=== PATIENT | female | born 1935 | race Caucasian/White ===

== ENCOUNTER 2018-12-30 17:28 | Inpatient (IN) ==
[2018-12-30] MEDS ORDERED: Morphine Sulfate Oral CONC 10 MG/0.5 ML ORAL.SYG PO PRN (18:01)
[2018-12-30] MEDS ORDERED: Albuterol 2.5 MG/3 ML NEBULIZER IH PRN ×2 (18:01→19:34)
[2018-12-30] MEDS ORDERED: (Linaclotide [Linzess] 290 MCG) PO PRN (18:01)
[2018-12-30] MEDS: Mirtazapine 15 MG TABLET PO SCH (21:07)
[2018-12-30] MEDS: Gabapentin 300 MG CAPSULE PO SCH (21:07)
[2018-12-30] MEDS: *HR* OxyCODONE Immed Rel 5 MG TABLET PO SCH (21:07)
[2018-12-31 06:31] LABS: Basophils % 0.3 %; Eosinophils # 0.3 K/mcL (0.0-0.6); Eosinophils % 3.2 %; Hematocrit 24.2 % (35.3-44.9); Hemoglobin 7.4 g/dL (11.5-15.4); Immature Granulocytes % 0.5 % (0-4); Lymphocytes # 1.9 K/mcL (0.6-4.6); Lymphocytes % 20.4 %; Mean Corpuscular HGB Conc 30.6 g/dL (31.6-35.5); Mean Corpuscular Hemoglobin 31.5 pg (28.0-33.3); Mean Platelet Volume 9.8 fL (9.4-12.4); Monocytes # 0.6 K/mcL (0.0-1.3); Monocytes % 6.6 %; Neutrophils # 6.5 K/mcL (1.6-8.9); Nucleated Red Blood Cells 0.3 /100 WBC (0); Platelet Count 343 K/mcL (140-400); Red Blood Count 2.35 M/mcL (3.82-4.97); Red Cell Distribution Width 17.2 % (11.5-14.5); White Blood Count 9.4 K/mcL (4.3-11.1)
[2018-12-31 06:48] LABS: INR 1.1
[2018-12-31 06:51] LABS: Activated Partial Thrombo Time 26.8 Seconds (26.0-36.0)
[2018-12-31 07:42] LABS: Calcium 8.3 mg/dL (8.6-10.3); Potassium 4.4 mEq/L (3.5-5.1)
[2018-12-31] MEDS: Multivit/Ca/Min/Fe/FA 1 TAB TABLET PO SCH (08:13)
[2018-12-31] MEDS: *HR* OxyCODONE Immed Rel 5 MG TABLET PO SCH ×4 (08:13→20:30)
[2018-12-31] MEDS: Aspirin Enteric Coated 81 MG Tablet PO SCH (08:13)
[2018-12-31] MEDS: amLODIPine 5 MG TABLET PO SCH (08:14)
--- NOTE | 2018-12-31 12:07 | Internal Med History&Physical ---
Date of Encounter: 12/31/18 Time of Encounter: 11:35 Assessment and Plan (1) Unilateral AKA Current visit: Yes Status: Acute PT and OT evaluation has been ordered. Follow up with surgeon as directed. (2) Hypertension Current visit: No Status: Chronic Continue amlodipine, Coreg, and Cozaar. Qualifiers: Hypertension type: essential hypertension Qualified Code(s): I10 - Essential (primary) hypertension (3) COPD (chronic obstructive pulmonary disease) Current visit: No Status: Chronic Continue Proventil nebs as needed. Qualifiers: COPD type: COPD with acute exacerbation Qualified Code(s): J44.1 - Chronic obstructive pulmonary disease with (acute) exacerbation (4) Chronic kidney disease Current visit: No Status: Chronic Creatinine minimally changed since July 2015. Monitor renal indices. Qualifiers: Chronic kidney disease stage: stage 3 (moderate) Qualified Code(s): N18.9 - Chronic kidney disease, unspecified (5) Coronary artery disease Current visit: No Status: Chronic Status post stent placement. Continue aspirin, Coreg, and amlodipine. Qualifiers: Coronary Disease-Associated Artery/Lesion type: [place] artery [place] vs. transplanted heart: [place] heart Associated angina: without angina Qualified Code(s): I25.10 - Atherosclerotic heart disease of [place] coronary artery without angina pectoris (6) DVT prophylaxis Current visit: No Status: Acute Lovenox will be ordered. (7) Congestive heart failure Current visit: No Status: Acute Continue aspirin, Coreg, and Cozaar. Qualifiers: Heart failure type: systolic Heart failure chronicity: acute on chronic Qualified Code(s): I50.23 - Acute on chronic systolic (congestive) heart failure (8) Dementia Current visit: No Status: Chronic MMSE will be ordered. Qualifiers: Dementia type: unspecified type Dementia behavioral disturbance: without behavioral disturbance Qualified Code(s): F03.90 - Unspecified dementia without behavioral disturbance (9) Anemia Current visit: No Status: Acute Recent anemia testing showed iron 60, transferrin saturation 18%, transferrin 239, ferritin 44, B12 1321, and folate> 22.3. Monitor CBC. Qualifiers: Anemia type: unspecified type Qualified Code(s): D64.9 - Anemia, unspecified Internal Medicine - H&P: HPI Chief complaint: Left AKA Admitted From: Hospital to Hospital Transfer Plans for Post Hospital Care: Home History of present illness: Ms. Hester is a 83 year old female who was transferred to [facility] swing bed after [facility] hospitalization December 19 for occluded left femoropopliteal bypass graft. She had left AKA 12/21/2018. Her postop course was complicated by GI bleed with panendoscopy not revealing bleeding source. Eliquis was discontinued. As pirin was continued. She was discharged to [facility] swing bed for ongoing therapy needs. [place] skeletal history is significant for previous leg fracture treated nonoperatively remotely. She denies significant arthritis gout or other bone joint or muscle disorders. Past Med Surg Social Fam HX - Past Medical History Medical history: CHF, COPD, coronary artery disease, GERD, hyperlipidemia, hypertension, peripheral artery disease Additional medical history: Unknown heart problem. fall with broken ribs janfeb 2018? DNR-CC and on hospice care Psychiatric history: no psych history - Past Surgical History Surgical History: hysterectomy, knee replacement, orthopedic, other Additional surgical history: right shoulder, right hand, knee surgery - Social History Smoking Status: Former smoker Smokeless Tobacco Status: No Alcohol use: none Drug use: none - Family History Father Hx Family Cardiac Disorders: Yes Brother Hx Family Cancer: Yes (kidney) Mother Family Member Ethnicity: Non- Living Status: Internal Medicine - H&P: Meds Aspirin Enteric Coated [Aspirin EC] 81 mg PO DAILY 06/05/17 [History] Multivit-Min/FA/Lycopen/Lutein [Centrum Silver Tablet] 1 tab PO DAILY 06/05/17 [History] [place]-3/Dha/Epa/Fish Oil [[place]-3 Fish Oil 1,000 mg Sfgl] 1,000 mg PO DAILY 06/05/17 [History] Albuterol Sulfate [Ventolin Hfa] 2 puff IH Q6H PRN 03/01/18 [History] Carvedilol [Coreg] 25 mg PO BIDWM tablet 04/21/18 [Rx] Gabapentin [Neurontin] 300 mg PO HS 12/05/18 [History] Linaclotide [Linzess] 290 mcg PO DAILY PRN 12/05/18 [History] Mirtazapine [Remeron] 30 mg PO HS 12/05/18 [History] amLODIPine [Norvasc] 2.5 mg PO DAILY 12/05/18 [History] Albuterol Neb [Proventil Neb] 2.5 mg IH Q6H PRN 12/07/18 [History] Losartan Potassium 25 mg PO DAILY 12/07/18 [History] Morphine Oral CONC [Roxanol] 5 mg PO QID PRN 12/07/18 [History] Oxycodone HCl [Roxybond] 5 mg PO QID 12/19/18 [History] Ferrous Sulfate 325 mg PO BIDWM 30 Days #60 tablet 12/23/18 [Rx] Omeprazole [PriLOSEC] 40 mg PO BIDAC capsule. 12/30/18 [Rx] Allergy/AdvReac Type Severity Reaction Status Date / Time latex Allergy Hives Verified 04/12/18 16:44 lisinopril AdvReac Abdominal Verified 04/12/18 16:44 Pain All Systems PM: A 10-system review of systems was performed and is negative for pertinent findings except as documented above in the HPI. Review of systems: Gen.: Her weight had been stable approximately 60 kg prior to AKA. Cardiovascular: She has history of hypertension and ischemic cardiomyopathy with LVEF 30% on echocardiogram April 2018. She has had BiV ICD placed. The interventricular septum and posterior wall thickness measurements were 1.21 and 1.38 cm respectively. Heart catheter 08/06/2017 showed 30% stenosis in LMCA, 20% stenosis in proximal LAD, 15% stenosis in mid LAD, patent stent in first diagonal, 20% stenosis in proximal circumflex, 30% stenosis in first marginal, and 100% stenosis in proximal RCA which was considered [employer]. The RPDA filled via [id number] collaterals. No additional intervention was done. She had extensive left leg DVT prior to amputation. She has ASPVD. Respiratory: She smoked since age 14 up to one and a half packs per day. She has a diagnosis COPD and used home oxygen prior to hospitalization. CT of chest abdomen pelvis 12/19/2018 showed no pathology suggestive of malignancy. GI: She denies disorders of her liver gallbladder or exocrine pancreas : She was unaware she had chronic kidney disease stage III. She denies other kidney or bladder disorders. Neurologic: She denies large distribution strokes or seizures. Endocrine: She denies diabetes thyroid disease or hyperlipidemia Hematology/oncology: She was unaware she had anemia. She denies internal malignancies. Psychiatric: She denies anxiety depression or other mental health issues. [place] skeletal: She had AKA last week as per history of present illness. She denies significant arthritis gout or other bone joint or muscle disorders. - Constitutional Vitals: Temp Pulse Resp BP Pulse Ox 98.2 F 70 16 159/72 95 12/31/18 06:59 12/31/18 06:59 12/31/18 06:59 12/31/18 06:59 12/31/18 06:59 Exam: Neuro: She is a well-developed well-nourished female resting comfortably in a chair at bedside who appears in no acute distress HEENT: Head is atraumatic and normocephalic. Eyes: EOMI. There is no scleral icterus. Mouth: Mucosa is moist. Neck: Supple and nontender. There is no thyromegaly or adenopathy noted. Heart: Regular without murmurs gallops or ectopics Lungs: No wheezes or crackles are heard. Back: She has dorsal kyphosis. There is no presacral edema. Abdomen: Soft and nontender. Exam is limited because she is in the seated position. Extremities: The left leg AKA incision shows minimal erythema around staple insertion sites. No incisional drainage is noted. The right leg shows no pitting edema. She has mild DJD changes of her hands. Neurologic: Mental status: She is talkative and a fair to good historian. She does not remember some details of her history. Cranial nerves: Smile is symmetric. Forehead wrinkles bilaterally. Tongue protrudes midline. EOMI. Motor: There is no pronator drift. Cerebellar: Finger to nose is intact bilaterally. Skin: Warm and dry Internal Med - H&P Results - Labs CBC & Chem 7: 12/31/18 06:12 12/31/18 06:12 Labs: Short CBC 12/31/18 Range/Units 06:12 WBC 9.4 (4.3-11.1) K/mcL Hgb 7.4 L (11.5-15.4) g/dL Hct 24.2 L (35.3-44.9) % Plt Count 343 (140-400) K/mcL Neutrophils # 6.5 (1.6-8.9) K/mcL BMP 12/31/18 06:12 Sodium 140 Potassium 4.4 Chloride 110 H Carbon Dioxide 25 BUN 21 Creatinine 1.32 H Glucose 96 Calcium 8.3 L
[2018-12-31] MEDS: Mirtazapine 15 MG TABLET PO SCH (20:29)
[2018-12-31] MEDS: Gabapentin 300 MG CAPSULE PO SCH (20:29)
[2019-01-01] MEDS ORDERED: *HR* Enoxaparin 40 MG/0.4 ML SYRINGE SQ SCH (06:00)
[2019-01-01] MEDS: amLODIPine 5 MG TABLET PO SCH (08:56)
[2019-01-01] MEDS: *HR* OxyCODONE Immed Rel 5 MG TABLET PO SCH ×4 (08:57→20:43)
[2019-01-01] MEDS: Aspirin Enteric Coated 81 MG Tablet PO SCH (08:57)
[2019-01-01] MEDS: Multivit/Ca/Min/Fe/FA 1 TAB TABLET PO SCH (08:57)
--- NOTE | 2019-01-01 16:08 | Internal Med Progress Note ---
Date of Encounter: 01/01/19 Time of Encounter: 16:00 - Assessment and plan (1) Unilateral AKA Current Visit: Yes Status: Acute Assessment and plan: January 01. Continue PT/OT intervention. Follow up with surgeon as directed. (2) Hypertension Current Visit: No Status: Chronic Assessment and plan: January 01. Continue amlodipine, Coreg, and Cozaar Qualifiers: Hypertension type: essential hypertension Qualified Code(s): I10 - Essential (primary) hypertension (3) COPD (chronic obstructive pulmonary disease) Current Visit: No Status: Chronic Assessment and plan: January 01. Continue Proventil nebs as needed. Qualifiers: COPD type: COPD with acute exacerbation Qualified Code(s): J44.1 - Chronic obstructive pulmonary disease with (acute) exacerbation (4) Chronic kidney disease Current Visit: No Status: Chronic Assessment and plan: January 01. Creatinine minimally changed since July 2015. Monitor renal indices. Qualifiers: Chronic kidney disease stage: stage 3 (moderate) Qualified Code(s): N18.9 - Chronic kidney disease, unspecified (5) Coronary artery disease Current Visit: No Status: Chronic Assessment and plan: January 01. Status post stent placement. Continue aspirin, Coreg, and amlodipine. Qualifiers: Coronary Disease-Associated Artery/Lesion type: [place] artery [place] vs. transplanted heart: [place] heart Associated angina: without angina Qualified Code(s): I25.10 - Atherosclerotic heart disease of [place] coronary artery without angina pectoris (6) DVT prophylaxis Current Visit: No Status: Acute Assessment and plan: January 01. Continue Lovenox. (7) Congestive heart failure Current Visit: No Status: Acute Assessment and plan: January 01. Continue aspirin, Coreg, and Cozaar. Qualifiers: Heart failure type: systolic Heart failure chronicity: acute on chronic Qualified Code(s): I50.23 - Acute on chronic systolic (congestive) heart failure (8) Dementia Current Visit: No Status: Chronic Assessment and plan: January 01. Possible. MMSE has been ordered. Qualifiers: Dementia type: unspecified type Dementia behavioral disturbance: without behavioral disturbance Qualified Code(s): F03.90 - Unspecified dementia without behavioral disturbance (9) Anemia Current Visit: No Status: Acute Assessment and plan: January 01. Recent anemia testing showed iron 60, transferrin saturation 18%, transferrin 239, ferritin 44, B12 1321, and folate> 22.3. Monitor CBC. Qualifiers: Anemia type: unspecified type Qualified Code(s): D64.9 - Anemia, unspecified - Subjective Interval history: January 01. She has no new complaints except she is "bored" and wants to go outside. - Constitutional Vitals: Temp Pulse Resp BP Pulse Ox 98.9 F 71 16 128/53 96 01/01/19 06:44 01/01/19 06:44 01/01/19 06:44 01/01/19 06:44 01/01/19 06:44 Exam: She is resting comfortably in bed and appears in no acute distress. Her affect is bright and cheerful. I reviewed her medications and lab results. Internal Medicine: Result - Labs CBC & Chem 7: 12/31/18 06:12 12/31/18 06:12 - ABG Interpretation ABG results: PT/INR, D-dimer PT 12.0 Seconds (9.4-12.1) 12/31/18 06:12 Consult Discharge Plan - Plan Referrals: NONE,PCP [Primary Care Provider] - 1 week
[2019-01-01] MEDS: Mirtazapine 15 MG TABLET PO SCH (20:50)
[2019-01-01] MEDS: Gabapentin 300 MG CAPSULE PO SCH (20:50)
[2019-01-02] MEDS: *HR* Enoxaparin 30 MG/0.3 ML SYRINGE SQ SCH (05:33)
[2019-01-02] MEDS: amLODIPine 5 MG TABLET PO SCH (09:00)
[2019-01-02] MEDS: Multivit/Ca/Min/Fe/FA 1 TAB TABLET PO SCH (09:00)
[2019-01-02] MEDS: Aspirin Enteric Coated 81 MG Tablet PO SCH (09:01)
[2019-01-02] MEDS: *HR* OxyCODONE Immed Rel 5 MG TABLET PO SCH ×3 (09:01→18:20)
[2019-01-02] MEDS ORDERED: Acetaminophen 325 MG TABLET PO PRN (11:05)
--- NOTE | 2019-01-02 11:12 | Internal Med Progress Note ---
Date of Encounter: 01/02/19 Time of Encounter: 11:00 - Assessment and plan (1) Unilateral AKA Current Visit: Yes Status: Acute Assessment and plan: January 01. Continue PT/OT intervention. Follow up with surgeon as directed. (2) Hypertension Current Visit: No Status: Chronic Assessment and plan: January 01. Continue amlodipine, Coreg, and Cozaar Qualifiers: Hypertension type: essential hypertension Qualified Code(s): I10 - Essential (primary) hypertension (3) COPD (chronic obstructive pulmonary disease) Current Visit: No Status: Chronic Assessment and plan: January 01. Continue Proventil nebs as needed. Qualifiers: COPD type: COPD with acute exacerbation Qualified Code(s): J44.1 - Chronic obstructive pulmonary disease with (acute) exacerbation (4) Chronic kidney disease Current Visit: No Status: Chronic Assessment and plan: January 01. Creatinine minimally changed since July 2015. Monitor renal indices. Qualifiers: Chronic kidney disease stage: stage 3 (moderate) Qualified Code(s): N18.9 - Chronic kidney disease, unspecified (5) Coronary artery disease Current Visit: No Status: Chronic Assessment and plan: January 01. Status post stent placement. Continue aspirin, Coreg, and amlodipine. Qualifiers: Coronary Disease-Associated Artery/Lesion type: [place] artery [place] vs. transplanted heart: [place] heart Associated angina: without angina Qualified Code(s): I25.10 - Atherosclerotic heart disease of [place] coronary artery without angina pectoris (6) DVT prophylaxis Current Visit: No Status: Acute Assessment and plan: January 01. Continue Lovenox. (7) Congestive heart failure Current Visit: No Status: Acute Assessment and plan: January 01. Continue aspirin, Coreg, and Cozaar. January 02. Continue present Rx. Check BNP peptide. Qualifiers: Heart failure type: systolic Heart failure chronicity: acute on chronic Qualified Code(s): I50.23 - Acute on chronic systolic (congestive) heart failure (8) Dementia Current Visit: No Status: Chronic Assessment and plan: January 01. Possible. MMSE has been ordered. January 02. MMSE score . TSH and B12 level WNL. Qualifiers: Dementia type: unspecified type Dementia behavioral disturbance: without behavioral disturbance Qualified Code(s): F03.90 - Unspecified dementia without behavioral disturbance (9) Anemia Current Visit: No Status: Acute Assessment and plan: January 01. Recent anemia testing showed iron 60, transferrin saturation 18%, transferrin 239, ferritin 44, B12 1321, and folate> 22.3. Monitor CBC. January 02. Check CBC today. Qualifiers: Anemia type: unspecified type Qualified Code(s): D64.9 - Anemia, unspecified (10) Fever Current Visit: Yes Status: Acute Assessment and plan: January 02. Blood cultures, chest x-ray, labs, and UA with C/S will be ordered. Qualifiers: Fever type: unspecified Qualified Code(s): R50.9 - Fever, unspecified (11) Tobacco abuse Current Visit: No Status: Chronic Assessment and plan: January 02. Start NicoDerm patch. - Subjective Interval history: January 01. She has no new complaints except she is "bored" and wants to go outside. January 02. She has no new complaints. She denies pain or dyspnea. - Constitutional Vitals: Temp Pulse Resp BP Pulse Ox 102.1 F H 71 14 149/59 92 01/02/19 07:12 01/02/19 07:12 01/02/19 07:12 01/02/19 07:12 01/02/19 07:12 Exam: She is resting comfortably in bed and appears in no acute distress. Heart is regular with rate approximately 72/m. Lungs are clear anteriorly. Left leg stump shows no drainage or erythema. I reviewed her medications and lab results. I note fever 102.1 this morning. Internal Medicine: Result - Labs CBC & Chem 7: 12/31/18 06:12 12/31/18 06:12 - ABG Interpretation ABG results: PT/INR, D-dimer PT 12.0 Seconds (9.4-12.1) 12/31/18 06:12 Consult Discharge Plan - Plan Referrals: NONE,PCP [Primary Care Provider] - 1 week
[2019-01-02 11:32] LABS: Basophils # 0.1 K/mcL (0.0-0.2); Basophils % 0.3 %; Eosinophils # 0.2 K/mcL (0.0-0.6); Eosinophils % 0.8 %; Hematocrit 25.8 % (35.3-44.9); Immature Granulocytes % 0.5 % (0-4); Lymphocytes # 1.3 K/mcL (0.6-4.6); Lymphocytes % 6.2 %; Mean Corpuscular Hemoglobin 32.1 pg (28.0-33.3); Mean Corpuscular Volume 103.6 fL (83.0-100.0); Monocytes # 0.9 K/mcL (0.0-1.3); Monocytes % 4.4 %; Neutrophils # 18.7 K/mcL (1.6-8.9); Platelet Count 319 K/mcL (140-400); Red Blood Count 2.49 M/mcL (3.82-4.97); Red Cell Distribution Width 17.2 % (11.5-14.5); Segmented Neutrophils % 87.8 %; White Blood Count 21.3 K/mcL (4.3-11.1)
[2019-01-02 11:51] LABS: Albumin 3.1 g/dL (3.5-5.7); Albumin/Globulin Ratio 1.1 (1.1-2.2); Bilirubin,Total 0.3 mg/dL (0.3-1.0); Calcium 8.4 mg/dL (8.6-10.3); Globulin 2.9 g/dL (2.4-3.5); Potassium 4.5 mEq/L (3.5-5.1)
[2019-01-02] MEDS: Nicotine 14 MG PATCH.TD24 TD SCH (12:28)
[2019-01-02] MEDS ORDERED: Aminoglycoside Consult 1 EACH MC ONE (16:00)
[2019-01-02 17:16] LABS: Bilirubin,Urine Negative (Negative); Blood,Urine Moderate (Negative); Clarity,Urine Slightly Cloudy (Clear); Color,Urine Yellow (Yellow); Glucose,Urine (UA) Normal (Normal); Ketones,Urine Negative (Negative); Leukocyte Esterase,Urine Small (Negative); Nitrite,Urine Positive (Negative); Protein,Urine 100 mg/dL (Neg-Trace); Urobilinogen,Urine Normal (Normal)
[2019-01-02 17:22] LABS: Bacteria,Urine Many per hpf (None-Few); RBC,Urine TNTC per hpf (0-3); Squamous Epithelial Cell,Urine Few per lpf (None-Few); WBC,Urine TNTC per hpf (0-3)
[2019-01-02 17:23] LABS: Mucus,Urine Moderate (Few)
[2019-01-02] MEDS: Piperacillin/Tazobactam 3.375 GM in 0.9 % Sodium Chloride Mini Bag 100 ML IVPB SCH (18:11)
[2019-01-02] MEDS: Gabapentin 300 MG CAPSULE PO SCH (21:55)
[2019-01-02] MEDS: Mirtazapine 15 MG TABLET PO SCH (21:55)
[2019-01-03] MEDS: Piperacillin/Tazobactam 3.375 GM in 0.9 % Sodium Chloride Mini Bag 100 ML IVPB SCH ×3 (05:32→18:04)
[2019-01-03] MEDS: *HR* Enoxaparin 30 MG/0.3 ML SYRINGE SQ SCH (05:32)
[2019-01-03 07:39] LABS: Hematocrit 23.5 % (35.3-44.9); Hemoglobin 7.5 g/dL (11.5-15.4); Mean Corpuscular HGB Conc 31.9 g/dL (31.6-35.5); Mean Corpuscular Volume 103.5 fL (83.0-100.0); Mean Platelet Volume 10.2 fL (9.4-12.4); Monocytes # 1.5 K/mcL (0.0-1.3); Platelet Count 265 K/mcL (140-400); Red Blood Count 2.27 M/mcL (3.82-4.97); Red Cell Distribution Width 17.7 % (11.5-14.5)
[2019-01-03 07:45] LABS: White Blood Count 36.8 K/mcL (4.3-11.1)
[2019-01-03] MEDS: *HR* OxyCODONE Immed Rel 5 MG TABLET PO SCH ×5 (08:53→20:08)
[2019-01-03] MEDS: Aspirin Enteric Coated 81 MG Tablet PO SCH (08:55)
[2019-01-03] MEDS: Multivit/Ca/Min/Fe/FA 1 TAB TABLET PO SCH (08:55)
[2019-01-03] MEDS: amLODIPine 5 MG TABLET PO SCH (08:58)
[2019-01-03] MEDS: Nicotine 14 MG PATCH.TD24 TD SCH (09:00)
--- NOTE | 2019-01-03 09:21 | Internal Med Progress Note ---
Date of Encounter: 01/03/19 Time of Encounter: 09:10 - Assessment and plan (1) Unilateral AKA Current Visit: Yes Status: Acute Assessment and plan: January 01. Continue PT/OT intervention. Follow up with surgeon as directed. (2) Hypertension Current Visit: No Status: Chronic Assessment and plan: January 01. Continue amlodipine, Coreg, and Cozaar January 03. Blood pressure borderline low. Hold antihypertensive medications. Qualifiers: Hypertension type: essential hypertension Qualified Code(s): I10 - Essential (primary) hypertension (3) COPD (chronic obstructive pulmonary disease) Current Visit: No Status: Chronic Assessment and plan: January 01. Continue Proventil nebs as needed. Qualifiers: COPD type: COPD with acute exacerbation Qualified Code(s): J44.1 - Chronic obstructive pulmonary disease with (acute) exacerbation (4) Chronic kidney disease Current Visit: No Status: Chronic Assessment and plan: January 01. Creatinine minimally changed since July 2015. Monitor renal indices. January 03. Creatinine has risen to 1.69. Intake marginal. IV fluids will be started at low rate. Recheck labs in a.m. Qualifiers: Chronic kidney disease stage: stage 3 (moderate) Qualified Code(s): N18.9 - Chronic kidney disease, unspecified (5) Coronary artery disease Current Visit: No Status: Chronic Assessment and plan: January 01. Status post stent placement. Continue aspirin, Coreg, and amlodipine. January 03. Hold amlodipine and Coreg today due to hypotension. Qualifiers: Coronary Disease-Associated Artery/Lesion type: [place] artery [place] vs. transplanted heart: [place] heart Associated angina: without angina Qualified Code(s): I25.10 - Atherosclerotic heart disease of [place] coronary artery without angina pectoris (6) DVT prophylaxis Current Visit: No Status: Acute Assessment and plan: January 01. Continue Lovenox. (7) Congestive heart failure Current Visit: No Status: Acute Assessment and plan: January 01. Continue aspirin, Coreg, and Cozaar. January 02. Continue present Rx. Check BNP peptide. January 03. Hold Coreg and Cozaar because of hypotension. Qualifiers: Heart failure type: systolic Heart failure chronicity: acute on chronic Qualified Code(s): I50.23 - Acute on chronic systolic (congestive) heart failure (8) Dementia Current Visit: No Status: Chronic Assessment and plan: January 01. Possible. MMSE has been ordered. January 02. MMSE score 22/30. TSH and B12 level WNL. Qualifiers: Dementia type: unspecified type Dementia behavioral disturbance: without behavioral disturbance Qualified Code(s): F03.90 - Unspecified dementia without behavioral disturbance (9) Anemia Current Visit: No Status: Acute Assessment and plan: January 01. Recent anemia testing showed iron 60, transferrin saturation 18%, transferrin 239, ferritin 44, B12 1321, and folate> 22.3. Monitor CBC. January 02. Check CBC today. January 03. Hemoglobin 7.5 today. Continue to monitor. Qualifiers: Anemia type: unspecified type Qualified Code(s): D64.9 - Anemia, unspecified (10) Fever Current Visit: Yes Status: Acute Assessment and plan: January 02. Blood cultures, chest x-ray, labs, and UA with C/S will be ordered. January 03. WBC has risen further to 36.8 differential pending. Cultures show no growth to date. UA and chest x-ray report reviewed. Pro-calcitonin level WNL at 0.07. Continue empiric Zosyn and vancomycin with lactobacillus for now. Qualifiers: Fever type: unspecified Qualified Code(s): R50.9 - Fever, unspecified (11) Tobacco abuse Current Visit: No Status: Chronic Assessment and plan: January 02. Start NicoDerm patch. - Subjective Interval history: January 01. She has no new complaints except she is "bored" and wants to go outside. January 02. She has no new complaints. She denies pain or dyspnea. January 03. She has no new complaints. She specifically denies pain or dyspnea. - Constitutional Vitals: Temp Pulse Resp BP Pulse Ox 98.8 F 84 16 100/57 87 01/03/19 06:41 01/03/19 06:41 01/03/19 06:41 01/03/19 06:41 01/03/19 06:41 Exam: Is resting comfortably in bed and appears in no acute distress. Her left leg stump shows no erythema drainage or tenderness. There is no edema of the right leg. She is not dyspneic. I reviewed her medications and lab results. Internal Medicine: Result - Labs CBC & Chem 7: 01/03/19 07:19 01/03/19 07:19 Labs: Short CBC 01/02/19 01/03/19 Range/Units 11:17 07:19 WBC 21.3 H D 36.8 H* D (4.3-11.1) K/mcL Hgb 8.0 L 7.5 L (11.5-15.4) g/dL Hct 25.8 L 23.5 L (35.3-44.9) % Plt Count 319 265 (140-400) K/mcL Neutrophils # 18.7 H (1.6-8.9) K/mcL BMP 01/02/19 01/03/19 11:17 07:19 Sodium 138 137 Potassium 4.5 4.0 Chloride 107 107 Carbon Dioxide 25 22 L BUN 26 H 30 H Creatinine 1.21 H 1.69 H Glucose 99 132 H Calcium 8.4 L 8.0 L Liver Function 01/02/19 Range/Units 11:17 Total Bilirubin 0.3 (0.3-1.0) mg/dL AST 14 (13-39) Units/L ALT 11 (7-52) Units/L Alkaline Phosphatase 58 (34-104) Units/L Albumin 3.1 L (3.5-5.7) g/dL Urine 01/02/19 Range/Units 17:00 Urine Color Yellow (Yellow) Urine Clarity Slightly Cloudy A (Clear) Urine pH 7.0 (5.0-8.0) pH Units Ur Specific [place] 1.020 (1.010-1.025) Urine Protein 100 H (Neg-Trace) mg/dL Urine Glucose (UA) Normal (Normal) mg/dL - ABG Interpretation ABG results: PT/INR, D-dimer PT 12.0 Seconds (9.4-12.1) 12/31/18 06:12 - Impressions Impressions Chest X-Ray 01/02/19 11:04 IMPRESSION: 1. No acute cardiopulmonary disease. D/ / 01/02/2019 11:39:51 Jace Condon MD / Clair Velasquez Interpreting Provider: Jace Condon MD Consult Discharge Plan - Plan Referrals: NONE,PCP [Primary Care Provider] - 1 week
[2019-01-03 09:50] LABS: Large Platelets Present (Not Present); Lymphocytes # 1.5 K/mcL (0.6-4.6); Neutrophils # 33.9 K/mcL (1.6-8.9); Platelet Estimate Normal (Normal); Polychromasia 1+ (Not Present); Toxic Granulation Present (Not Present); Toxic Vacuolation Present (Not Present)
[2019-01-03] MEDS: Gabapentin 300 MG CAPSULE PO SCH (20:08)
[2019-01-03] MEDS: Lactobacillus 1 EACH CAP.SPRINK PO SCH (20:09)
[2019-01-03] MEDS: Mirtazapine 15 MG TABLET PO SCH (20:09)
[2019-01-04] MEDS: Piperacillin/Tazobactam 3.375 GM in 0.9 % Sodium Chloride Mini Bag 100 ML IVPB SCH ×4 (00:26→23:46)
[2019-01-04] MEDS: *HR* Enoxaparin 30 MG/0.3 ML SYRINGE SQ SCH (05:23)
[2019-01-04 07:33] LABS: Basophils # 0.1 K/mcL (0.0-0.2); Basophils % 0.3 %; Eosinophils # 0.3 K/mcL (0.0-0.6); Eosinophils % 1.6 %; Hematocrit 22.1 % (35.3-44.9); Hemoglobin 6.8 g/dL (11.5-15.4); Immature Granulocytes % 0.5 % (0-4); Lymphocytes % 5.5 %; Mean Corpuscular HGB Conc 30.8 g/dL (31.6-35.5); Mean Corpuscular Hemoglobin 32.4 pg (28.0-33.3); Mean Corpuscular Volume 105.2 fL (83.0-100.0); Mean Platelet Volume 10.4 fL (9.4-12.4); Monocytes # 0.9 K/mcL (0.0-1.3); Monocytes % 4.9 %; Neutrophils # 16.2 K/mcL (1.6-8.9); Platelet Count 241 K/mcL (140-400); Red Cell Distribution Width 17.2 % (11.5-14.5); Segmented Neutrophils % 87.2 %; White Blood Count 18.6 K/mcL (4.3-11.1)
[2019-01-04 07:52] LABS: Albumin 2.6 g/dL (3.5-5.7); Albumin/Globulin Ratio 0.9 (1.1-2.2); Bilirubin,Total 0.4 mg/dL (0.3-1.0); Calcium 7.6 mg/dL (8.6-10.3); Globulin 2.8 g/dL (2.4-3.5); Potassium 4.3 mEq/L (3.5-5.1); Total Protein 5.4 g/dL (6.4-8.9)
[2019-01-04] MEDS: Lactobacillus 1 EACH CAP.SPRINK PO SCH ×2 (09:05→21:31)
[2019-01-04] MEDS: Aspirin Enteric Coated 81 MG Tablet PO SCH (09:05)
[2019-01-04] MEDS: Multivit/Ca/Min/Fe/FA 1 TAB TABLET PO SCH (09:05)
[2019-01-04] MEDS: *HR* OxyCODONE Immed Rel 5 MG TABLET PO SCH ×4 (09:07→21:32)
[2019-01-04] MEDS: Nicotine 14 MG PATCH.TD24 TD SCH (09:13)
--- NOTE | 2019-01-04 11:00 | Internal Med Progress Note ---
Date of Encounter: 01/04/19 Time of Encounter: 10:50 - Assessment and plan (1) Unilateral AKA Current Visit: Yes Status: Acute Assessment and plan: January 01. Continue PT/OT intervention. Follow up with surgeon as directed. (2) Hypertension Current Visit: No Status: Chronic Assessment and plan: January 01. Continue amlodipine, Coreg, and Cozaar January 03. Blood pressure borderline low. Hold antihypertensive medications. January 04. Blood pressure improved. Remain off antihypertensive medication. Qualifiers: Hypertension type: essential hypertension Qualified Code(s): I10 - Essential (primary) hypertension (3) COPD (chronic obstructive pulmonary disease) Current Visit: No Status: Chronic Assessment and plan: January 01. Continue Proventil nebs as needed. Qualifiers: COPD type: COPD with acute exacerbation Qualified Code(s): J44.1 - Chronic obstructive pulmonary disease with (acute) exacerbation (4) Chronic kidney disease Current Visit: No Status: Chronic Assessment and plan: January 01. Creatinine minimally changed since July 2015. Monitor renal indices. January 03. Creatinine has risen to 1.69. Intake marginal. IV fluids will be started at low rate. Recheck labs in a.m. January 04. BUN and creatinine slightly higher at 32 and 1.87 respectively. Continue IV fluids. Recheck labs in a.m. Qualifiers: Chronic kidney disease stage: stage 3 (moderate) Qualified Code(s): N18.9 - Chronic kidney disease, unspecified (5) Coronary artery disease Current Visit: No Status: Chronic Assessment and plan: January 01. Status post stent placement. Continue aspirin, Coreg, and amlodipine. January 03. Hold amlodipine and Coreg today due to hypotension. Qualifiers: Coronary Disease-Associated Artery/Lesion type: [place] artery [place] vs. transplanted heart: [place] heart Associated angina: without angina Qualified Code(s): I25.10 - Atherosclerotic heart disease of [place] coronary artery without angina pectoris (6) DVT prophylaxis Current Visit: No Status: Acute Assessment and plan: January 01. Continue Lovenox. (7) Congestive heart failure Current Visit: No Status: Acute Assessment and plan: January 01. Continue aspirin, Coreg, and Cozaar. January 02. Continue present Rx. Check BNP peptide. January 03. Hold Coreg and Cozaar because of hypotension. Qualifiers: Heart failure type: systolic Heart failure chronicity: acute on chronic Qualified Code(s): I50.23 - Acute on chronic systolic (congestive) heart failure (8) Dementia Current Visit: No Status: Chronic Assessment and plan: January 01. Possible. MMSE has been ordered. January 02. MMSE score . TSH and B12 level WNL. Qualifiers: Dementia type: unspecified type Dementia behavioral disturbance: without behavioral disturbance Qualified Code(s): F03.90 - Unspecified dementia without behavioral disturbance (9) Anemia Current Visit: No Status: Acute Assessment and plan: January 01. Recent anemia testing showed iron 60, transferrin saturation 18%, transferrin 239, ferritin 44, B12 1321, and folate> 22.3. Monitor CBC. January 02. Check CBC today. January 03. Hemoglobin 7.5 today. Continue to monitor. January 04. Hemoglobin has decreased further to 6.8. Aspirin will be held for 3 days. 2 units of packed red blood cells will be transfused. Recheck labs in a.m. Qualifiers: Anemia type: unspecified type Qualified Code(s): D64.9 - Anemia, unspecified (10) Fever Current Visit: Yes Status: Acute Assessment and plan: January 02. Blood cultures, chest x-ray, labs, and UA with C/S will be ordered. January 03. WBC has risen further to 36.8 differential pending. Cultures show no growth to date. UA and chest x-ray report reviewed. Pro-calcitonin level WNL at 0.07. Continue empiric Zosyn and vancomycin with lactobacillus for now. January 04. WBC has decreased to 18.6 without bandemia. Repeat pro-calcitonin level pending. Continue empiric Zosyn and vancomycin with lactobacillus. Recheck labs in a.m. Qualifiers: Fever type: unspecified Qualified Code(s): R50.9 - Fever, unspecified (11) Tobacco abuse Current Visit: No Status: Chronic Assessment and plan: January 02. Start NicoDerm patch. - Subjective Interval history: January 01. She has no new complaints except she is "bored" and wants to go outside. January 02. She has no new complaints. She denies pain or dyspnea. January 03. She has no new complaints. She specifically denies pain or dyspnea. January 04. She has no new complaints. - Constitutional Vitals: Temp Pulse Resp BP Pulse Ox 98.6 F 70 16 125/60 90 01/04/19 08:36 01/04/19 08:36 01/04/19 08:36 01/04/19 08:36 01/04/19 08:36 Exam: She is resting comfortably in bed and appears in no acute distress. Right leg shows no edema. Left leg incision shows no erythema or drainage. Heart is regular. Lungs are clear anteriorly. I reviewed her medications and lab results. Internal Medicine: Result - Labs CBC & Chem 7: 01/04/19 07:15 01/04/19 07:15 Labs: Short CBC 01/04/19 Range/Units 07:15 WBC 18.6 H (4.3-11.1) K/mcL Hgb 6.8 L (11.5-15.4) g/dL Hct 22.1 L (35.3-44.9) % Plt Count 241 (140-400) K/mcL Neutrophils # 16.2 H (1.6-8.9) K/mcL BMP 01/04/19 07:15 Sodium 138 Potassium 4.3 Chloride 108 H Carbon Dioxide 21 L BUN 32 H Creatinine 1.87 H Glucose 90 Calcium 7.6 L Liver Function 01/04/19 Range/Units 07:15 Total Bilirubin 0.4 (0.3-1.0) mg/dL AST 16 (13-39) Units/L ALT 9 (7-52) Units/L Alkaline Phosphatase 64 (34-104) Units/L Albumin 2.6 L (3.5-5.7) g/dL - ABG Interpretation ABG results: PT/INR, D-dimer PT 12.0 Seconds (9.4-12.1) 12/31/18 06:12 Consult Discharge Plan - Plan Referrals: NONE,PCP [Primary Care Provider] - 1 week
[2019-01-04] MEDS ORDERED: 0.9 % Sodium Chloride 250 ML ONE ×2 (12:53→17:54)
[2019-01-04] MEDS: Mirtazapine 15 MG TABLET PO SCH (21:31)
[2019-01-04] MEDS: Gabapentin 300 MG CAPSULE PO SCH (21:31)
[2019-01-05] MEDS: *HR* Enoxaparin 30 MG/0.3 ML SYRINGE SQ SCH (06:05)
[2019-01-05 07:34] LABS: Basophils % 0.3 %; Eosinophils # 0.4 K/mcL (0.0-0.6); Eosinophils % 3.5 %; Hematocrit 28.3 % (35.3-44.9); Hemoglobin 9.2 g/dL (11.5-15.4); Immature Granulocytes % 0.6 % (0-4); Lymphocytes # 0.8 K/mcL (0.6-4.6); Lymphocytes % 7.5 %; Mean Corpuscular HGB Conc 32.5 g/dL (31.6-35.5); Mean Corpuscular Hemoglobin 31.5 pg (28.0-33.3); Mean Corpuscular Volume 96.9 fL (83.0-100.0); Mean Platelet Volume 10.3 fL (9.4-12.4); Monocytes # 0.7 K/mcL (0.0-1.3); Monocytes % 6.1 %; Neutrophils # 8.9 K/mcL (1.6-8.9); Platelet Count 202 K/mcL (140-400); Red Blood Count 2.92 M/mcL (3.82-4.97); Red Cell Distribution Width 17.8 % (11.5-14.5); White Blood Count 10.8 K/mcL (4.3-11.1)
[2019-01-05 07:55] LABS: Calcium 7.8 mg/dL (8.6-10.3); Potassium 3.9 mEq/L (3.5-5.1)
[2019-01-05] MEDS: Lactobacillus 1 EACH CAP.SPRINK PO SCH ×2 (08:19→21:12)
[2019-01-05] MEDS: *HR* OxyCODONE Immed Rel 5 MG TABLET PO SCH ×4 (08:20→21:12)
[2019-01-05] MEDS: Multivit/Ca/Min/Fe/FA 1 TAB TABLET PO SCH (08:20)
[2019-01-05] MEDS: Nicotine 14 MG PATCH.TD24 TD SCH (08:22)
[2019-01-05] MEDS: Piperacillin/Tazobactam 3.375 GM in 0.9 % Sodium Chloride Mini Bag 100 ML IVPB SCH ×2 (08:24→16:05)
--- NOTE | 2019-01-05 15:53 | Internal Med Progress Note ---
Date of Encounter: 01/05/19 Time of Encounter: 15:35 - Assessment and plan (1) Unilateral AKA Current Visit: Yes Status: Acute Assessment and plan: January 01. Continue PT/OT intervention. Follow up with surgeon as directed. (2) Hypertension Current Visit: No Status: Chronic Assessment and plan: January 01. Continue amlodipine, Coreg, and Cozaar January 03. Blood pressure borderline low. Hold antihypertensive medications. January 04. Blood pressure improved. Remain off antihypertensive medication. Qualifiers: Hypertension type: essential hypertension Qualified Code(s): I10 - Essential (primary) hypertension (3) COPD (chronic obstructive pulmonary disease) Current Visit: No Status: Chronic Assessment and plan: January 01. Continue Proventil nebs as needed. Qualifiers: COPD type: COPD with acute exacerbation Qualified Code(s): J44.1 - Chronic obstructive pulmonary disease with (acute) exacerbation (4) Chronic kidney disease Current Visit: No Status: Chronic Assessment and plan: January 01. Creatinine minimally changed since July 2015. Monitor renal indices. January 03. Creatinine has risen to 1.69. Intake marginal. IV fluids will be started at low rate. Recheck labs in a.m. January 04. BUN and creatinine slightly higher at 32 and 1.87 respectively. Continue IV fluids. Recheck labs in a.m. January 05. BUN and creatinine decreased to 26 and 1.76 respectively with estimated GFR 28. Continue present Rx. Qualifiers: Chronic kidney disease stage: stage 3 (moderate) Qualified Code(s): N18.9 - Chronic kidney disease, unspecified (5) Coronary artery disease Current Visit: No Status: Chronic Assessment and plan: January 01. Status post stent placement. Continue aspirin, Coreg, and amlodipine. January 03. Hold amlodipine and Coreg today due to hypotension. Qualifiers: Coronary Disease-Associated Artery/Lesion type: [place] artery [place] vs. transplanted heart: [place] heart Associated angina: without angina Qualified Code(s): I25.10 - Atherosclerotic heart disease of [place] coronary artery without angina pectoris (6) DVT prophylaxis Current Visit: No Status: Acute Assessment and plan: January 01. Continue Lovenox. (7) Congestive heart failure Current Visit: No Status: Acute Assessment and plan: January 01. Continue aspirin, Coreg, and Cozaar. January 02. Continue present Rx. Check BNP peptide. January 03. Hold Coreg and Cozaar because of hypotension. Qualifiers: Heart failure type: systolic Heart failure chronicity: acute on chronic Qualified Code(s): I50.23 - Acute on chronic systolic (congestive) heart failure (8) Dementia Current Visit: No Status: Chronic Assessment and plan: January 01. Possible. MMSE has been ordered. January 02. MMSE score . TSH and B12 level WNL. Qualifiers: Dementia type: unspecified type Dementia behavioral disturbance: without behavioral disturbance Qualified Code(s): F03.90 - Unspecified dementia without behavioral disturbance (9) Anemia Current Visit: No Status: Acute Assessment and plan: January 01. Recent anemia testing showed iron 60, transferrin saturation 18%, transferrin 239, ferritin 44, B12 1321, and folate> 22.3. Monitor CBC. January 02. Check CBC today. January 03. Hemoglobin 7.5 today. Continue to monitor. January 04. Hemoglobin has decreased further to 6.8. Aspirin will be held for 3 days. 2 units of packed red blood cells will be transfused. Recheck labs in a.m. January 05. Hemoglobin 9.2 today. Remain off aspirin through January 07 and restart at lower dose. Monitor labs. Qualifiers: Anemia type: unspecified type Qualified Code(s): D64.9 - Anemia, unspecified (10) Fever Current Visit: Yes Status: Acute Assessment and plan: January 02. Blood cultures, chest x-ray, labs, and UA with C/S will be ordered. January 03. WBC has risen further to 36.8 differential pending. Cultures show no growth to date. UA and chest x-ray report reviewed. Pro-calcitonin level WNL at 0.07. Continue empiric Zosyn and vancomycin with lactobacillus for now. January 04. WBC has decreased to 18.6 without bandemia. Repeat pro-calcitonin level pending. Continue empiric Zosyn and vancomycin with lactobacillus. Recheck labs in a.m. January 05. WBC normal at 10.8 with 82% segs and no bands. Repeat pro- calcitonin significantly elevated at 39.30. Urine culture preliminary report shows 2 gram-negative rods growth. Vancomycin has been discontinued. Continue Zosyn and lactobacillus. Qualifiers: Fever type: unspecified Qualified Code(s): R50.9 - Fever, unspecified (11) Tobacco abuse Current Visit: No Status: Chronic Assessment and plan: January 02. Start NicoDerm patch. - Subjective Interval history: January 01. She has no new complaints except she is "bored" and wants to go outside. January 02. She has no new complaints. She denies pain or dyspnea. January 03. She has no new complaints. She specifically denies pain or dyspnea. January 04. She has no new complaints. January 05. She complains of nausea and abdominal discomfort but no vomiting. Sh - Constitutional Vitals: Temp Pulse Resp BP Pulse Ox 98.6 F 70 16 130/58 96 01/05/19 07:03 01/05/19 07:03 01/05/19 07:03 01/05/19 07:03 01/05/19 07:03 Exam: She is resting comfortably in bed and appears in no acute distress. Her affect is bright and cheerful. Heart is regular without murmurs gallops or ectopics. Lungs are clear anteriorly. Left leg incision is clean and dry with beni intact. I reviewed her medications and lab results. Internal Medicine: Result - Labs CBC & Chem 7: 01/05/19 07:00 01/05/19 07:00 Labs: Short CBC 01/05/19 Range/Units 07:00 WBC 10.8 (4.3-11.1) K/mcL Hgb 9.2 L D (11.5-15.4) g/dL Hct 28.3 L (35.3-44.9) % Plt Count 202 (140-400) K/mcL Neutrophils # 8.9 (1.6-8.9) K/mcL BMP 01/05/19 07:00 Sodium 139 Potassium 3.9 Chloride 110 H Carbon Dioxide 21 L BUN 26 H Creatinine 1.76 H Glucose 102 Calcium 7.8 L - ABG Interpretation ABG results: PT/INR, D-dimer PT 12.0 Seconds (9.4-12.1) 12/31/18 06:12 Consult Discharge Plan - Plan Referrals: NONE,PCP [Primary Care Provider] - 1 week
[2019-01-05] MEDS ORDERED: Ondansetron 4 MG/2 ML VIAL IVP PRN (15:56)
[2019-01-05] MEDS ORDERED: Mag Hydrox/Al Hydrox/Simeth 30 ML UDC PO PRN (15:57)
[2019-01-05] MEDS: Gabapentin 300 MG CAPSULE PO SCH (21:12)
[2019-01-05] MEDS: Mirtazapine 15 MG TABLET PO SCH (21:12)
[2019-01-06] MEDS: Piperacillin/Tazobactam 3.375 GM in 0.9 % Sodium Chloride Mini Bag 100 ML IVPB SCH ×2 (00:46→10:10)
[2019-01-06] MEDS: *HR* Enoxaparin 30 MG/0.3 ML SYRINGE SQ SCH (06:02)
[2019-01-06 07:32] LABS: Basophils % 0.4 %; Eosinophils # 0.4 K/mcL (0.0-0.6); Eosinophils % 5.4 %; Hematocrit 28.8 % (35.3-44.9); Hemoglobin 9.2 g/dL (11.5-15.4); Immature Granulocytes % 0.5 % (0-4); Lymphocytes % 12.1 %; Mean Corpuscular HGB Conc 31.9 g/dL (31.6-35.5); Mean Corpuscular Hemoglobin 31.5 pg (28.0-33.3); Mean Corpuscular Volume 98.6 fL (83.0-100.0); Mean Platelet Volume 10.3 fL (9.4-12.4); Monocytes # 0.6 K/mcL (0.0-1.3); Monocytes % 7.2 %; Platelet Count 211 K/mcL (140-400); Red Blood Count 2.92 M/mcL (3.82-4.97); Red Cell Distribution Width 17.4 % (11.5-14.5); Segmented Neutrophils % 74.4 %
[2019-01-06 07:51] LABS: Potassium 3.8 mEq/L (3.5-5.1)
[2019-01-06] MEDS: *HR* OxyCODONE Immed Rel 5 MG TABLET PO SCH ×4 (09:30→20:21)
[2019-01-06] MEDS: Multivit/Ca/Min/Fe/FA 1 TAB TABLET PO SCH (10:09)
[2019-01-06] MEDS: Lactobacillus 1 EACH CAP.SPRINK PO SCH ×2 (10:09→20:22)
[2019-01-06] MEDS: Nicotine 14 MG PATCH.TD24 TD SCH (14:06)
--- NOTE | 2019-01-06 15:47 | Internal Med Progress Note ---
Date of Encounter: 01/06/19 Time of Encounter: 15:40 - Assessment and plan (1) Unilateral AKA Current Visit: Yes Status: Acute Assessment and plan: January 01. Continue PT/OT intervention. Follow up with surgeon as directed. (2) Hypertension Current Visit: No Status: Chronic Assessment and plan: January 01. Continue amlodipine, Coreg, and Cozaar January 03. Blood pressure borderline low. Hold antihypertensive medications. January 04. Blood pressure improved. Remain off antihypertensive medication. January 06. Blood pressure has risen. Restart Cozaar. Continue Coreg. Remain off amlodipine. Qualifiers: Hypertension type: essential hypertension Qualified Code(s): I10 - Essential (primary) hypertension (3) COPD (chronic obstructive pulmonary disease) Current Visit: No Status: Chronic Assessment and plan: January 01. Continue Proventil nebs as needed. Qualifiers: COPD type: COPD with acute exacerbation Qualified Code(s): J44.1 - Chronic obstructive pulmonary disease with (acute) exacerbation (4) Chronic kidney disease Current Visit: No Status: Chronic Assessment and plan: January 01. Creatinine minimally changed since July 2015. Monitor renal indices. January 03. Creatinine has risen to 1.69. Intake marginal. IV fluids will be started at low rate. Recheck labs in a.m. January 04. BUN and creatinine slightly higher at 32 and 1.87 respectively. Continue IV fluids. Recheck labs in a.m. January 05. BUN and creatinine decreased to 26 and 1.76 respectively with estimated GFR 28. Continue present Rx. January 06. BUN and creatinine have improved to 19 and 1.61 respectively with estimated GFR 30. Oral intake is adequate. Discontinue IV fluids and continue to monitor labs periodically. Qualifiers: Chronic kidney disease stage: stage 3 (moderate) Qualified Code(s): N18.9 - Chronic kidney disease, unspecified (5) Coronary artery disease Current Visit: No Status: Chronic Assessment and plan: January 01. Status post stent placement. Continue aspirin, Coreg, and amlodipine. January 03. Hold amlodipine and Coreg today due to hypotension. Qualifiers: Coronary Disease-Associated Artery/Lesion type: [place] artery [place] vs. transplanted heart: [place] heart Associated angina: without angina Qualified Code(s): I25.10 - Atherosclerotic heart disease of [place] coronary artery without angina pectoris (6) DVT prophylaxis Current Visit: No Status: Acute Assessment and plan: January 01. Continue Lovenox. (7) Congestive heart failure Current Visit: No Status: Acute Assessment and plan: January 01. Continue aspirin, Coreg, and Cozaar. January 02. Continue present Rx. Check BNP peptide. January 03. Hold Coreg and Cozaar because of hypotension. January 06. BN peptide has risen to 1021. Continue Coreg and restart Cozaar. Qualifiers: Heart failure type: systolic Heart failure chronicity: acute on chronic Qualified Code(s): I50.23 - Acute on chronic systolic (congestive) heart failure (8) Dementia Current Visit: No Status: Chronic Assessment and plan: January 01. Possible. MMSE has been ordered. January 02. MMSE score . TSH and B12 level WNL. Qualifiers: Dementia type: unspecified type Dementia behavioral disturbance: without behavioral disturbance Qualified Code(s): F03.90 - Unspecified dementia without behavioral disturbance (9) Anemia Current Visit: No Status: Acute Assessment and plan: January 01. Recent anemia testing showed iron 60, transferrin saturation 18%, transferrin 239, ferritin 44, B12 1321, and folate> 22.3. Monitor CBC. January 02. Check CBC today. January 03. Hemoglobin 7.5 today. Continue to monitor. January 04. Hemoglobin has decreased further to 6.8. Aspirin will be held for 3 days. 2 units of packed red blood cells will be transfused. Recheck labs in a.m. January 05. Hemoglobin 9.2 today. Remain off aspirin through January 07 and restart at lower dose. Monitor labs. January 06. Hemoglobin stable today at 9.2. Restart aspirin January 08 at lower dose. Qualifiers: Anemia type: unspecified type Qualified Code(s): D64.9 - Anemia, unspecified (10) Tobacco abuse Current Visit: No Status: Chronic Assessment and plan: January 02. Start NicoDerm patch. (11) UTI (urinary tract infection) Current Visit: Yes Status: Acute Assessment and plan: January 06. Urine culture shows 2 distinct Escherichia coli organisms. Start oral Macrobid and discontinue IV Zosyn. Qualifiers: Urinary tract infection type: site unspecified Hematuria presence: with hematuria Qualified Code(s): N39.0 - Urinary tract infection, site not specified; R31.9 - Hematuria, unspecified - Subjective Interval history: January 01. She has no new complaints except she is "bored" and wants to go outside. January 02. She has no new complaints. She denies pain or dyspnea. January 03. She has no new complaints. She specifically denies pain or dyspnea. January 04. She has no new complaints. January 05. She complains of nausea and abdominal discomfort but no vomiting. January 06. She has no new complaints. She denies pain or dyspnea. - Constitutional Vitals: Temp Pulse Resp BP Pulse Ox 98.2 F 72 16 144/65 92 01/06/19 06:45 01/06/19 06:45 01/06/19 06:45 01/06/19 06:45 01/06/19 06:45 Exam: She is resting comfortably in bed and appears in no acute distress. Right leg shows no edema. Left leg incision shows no drainage. Heart is regular with a 2/6 systolic murmur at left sternal border. Lungs are clear anteriorly. I reviewed her medications and lab results. Internal Medicine: Result - Labs CBC & Chem 7: 01/06/19 07:20 01/06/19 07:20 Labs: Short CBC 01/06/19 Range/Units 07:20 WBC 8.0 (4.3-11.1) K/mcL Hgb 9.2 L (11.5-15.4) g/dL Hct 28.8 L (35.3-44.9) % Plt Count 211 (140-400) K/mcL Neutrophils # 6.0 (1.6-8.9) K/mcL BMP 01/06/19 07:20 Sodium 141 Potassium 3.8 Chloride 113 H Carbon Dioxide 22 L BUN 19 Creatinine 1.61 H Glucose 94 Calcium 8.0 L - ABG Interpretation ABG results: PT/INR, D-dimer PT 12.0 Seconds (9.4-12.1) 12/31/18 06:12 Consult Discharge Plan - Plan Referrals: NONE,PCP [Primary Care Provider] - 1 week
[2019-01-06] MEDS: Nitrofurantoin (BID) 100 MG CAPSULE PO SCH (18:45)
[2019-01-06] MEDS: Gabapentin 300 MG CAPSULE PO SCH (20:21)
[2019-01-06] MEDS: Mirtazapine 15 MG TABLET PO SCH (20:22)
[2019-01-07] MEDS: *HR* Enoxaparin 30 MG/0.3 ML SYRINGE SQ SCH (06:54)
[2019-01-07] MEDS: Lactobacillus 1 EACH CAP.SPRINK PO SCH ×2 (08:21→20:22)
[2019-01-07] MEDS: Multivit/Ca/Min/Fe/FA 1 TAB TABLET PO SCH (08:21)
[2019-01-07] MEDS: *HR* OxyCODONE Immed Rel 5 MG TABLET PO SCH ×4 (08:21→20:24)
[2019-01-07] MEDS: Nicotine 14 MG PATCH.TD24 TD SCH (08:21)
[2019-01-07] MEDS: Nitrofurantoin (BID) 100 MG CAPSULE PO SCH ×2 (08:21→16:44)
[2019-01-07] MEDS: Gabapentin 300 MG CAPSULE PO SCH (20:22)
[2019-01-07] MEDS: Mirtazapine 15 MG TABLET PO SCH (20:24)
[2019-01-08 05:31] LABS: Basophils % 0.5 %; Eosinophils # 0.5 K/mcL (0.0-0.6); Eosinophils % 6.3 %; Hematocrit 30.1 % (35.3-44.9); Hemoglobin 9.6 g/dL (11.5-15.4); Immature Granulocytes % 0.4 % (0-4); Lymphocytes # 1.4 K/mcL (0.6-4.6); Lymphocytes % 17.9 %; Mean Corpuscular HGB Conc 31.9 g/dL (31.6-35.5); Mean Corpuscular Hemoglobin 31.6 pg (28.0-33.3); Mean Platelet Volume 10.5 fL (9.4-12.4); Monocytes # 0.5 K/mcL (0.0-1.3); Monocytes % 6.8 %; Neutrophils # 5.4 K/mcL (1.6-8.9); Platelet Count 227 K/mcL (140-400); Red Blood Count 3.04 M/mcL (3.82-4.97); Red Cell Distribution Width 16.8 % (11.5-14.5); Segmented Neutrophils % 68.1 %; White Blood Count 7.9 K/mcL (4.3-11.1)
[2019-01-08 05:56] LABS: Calcium 8.3 mg/dL (8.6-10.3); Potassium 3.8 mEq/L (3.5-5.1)
[2019-01-08 06:29] LABS: Platelet Estimate Normal (Normal)
[2019-01-08] MEDS: *HR* Enoxaparin 30 MG/0.3 ML SYRINGE SQ SCH (06:30)
[2019-01-08] MEDS: Aspirin Enteric Coated 81 MG Tablet PO SCH ×2 (10:10→18:10)
[2019-01-08] MEDS: *HR* OxyCODONE Immed Rel 5 MG TABLET PO SCH ×4 (10:11→19:57)
[2019-01-08] MEDS: Nicotine 14 MG PATCH.TD24 TD SCH (10:11)
[2019-01-08] MEDS: Nitrofurantoin (BID) 100 MG CAPSULE PO SCH ×2 (10:11→18:09)
[2019-01-08] MEDS: Lactobacillus 1 EACH CAP.SPRINK PO SCH ×2 (10:11→19:58)
[2019-01-08] MEDS: Multivit/Ca/Min/Fe/FA 1 TAB TABLET PO SCH (10:11)
--- NOTE | 2019-01-08 16:26 | Internal Med Progress Note ---
Date of Encounter: 01/08/19 Time of Encounter: 16:17 - Assessment and plan (1) Unilateral AKA Current Visit: Yes Status: Acute Assessment and plan: January 01. Continue PT/OT intervention. Follow up with surgeon as directed. (2) Hypertension Current Visit: No Status: Chronic Assessment and plan: January 01. Continue amlodipine, Coreg, and Cozaar January 03. Blood pressure borderline low. Hold antihypertensive medications. January 04. Blood pressure improved. Remain off antihypertensive medication. January 06. Blood pressure has risen. Restart Cozaar. Continue Coreg. Remain off amlodipine. Qualifiers: Hypertension type: essential hypertension Qualified Code(s): I10 - Essential (primary) hypertension (3) COPD (chronic obstructive pulmonary disease) Current Visit: No Status: Chronic Assessment and plan: January 01. Continue Proventil nebs as needed. Qualifiers: COPD type: COPD with acute exacerbation Qualified Code(s): J44.1 - Chronic obstructive pulmonary disease with (acute) exacerbation (4) Chronic kidney disease Current Visit: No Status: Chronic Assessment and plan: January 01. Creatinine minimally changed since July 2015. Monitor renal indices. January 03. Creatinine has risen to 1.69. Intake marginal. IV fluids will be started at low rate. Recheck labs in a.m. January 04. BUN and creatinine slightly higher at 32 and 1.87 respectively. Continue IV fluids. Recheck labs in a.m. January 05. BUN and creatinine decreased to 26 and 1.76 respectively with estimated GFR 28. Continue present Rx. January 06. BUN and creatinine have improved to 19 and 1.61 respectively with estimated GFR 30. Oral intake is adequate. Discontinue IV fluids and continue to monitor labs periodically. January 08. BUN and creatinine have decreased to 15 and 1.20 respectively with estimated GFR 43. Continue to monitor periodically. Qualifiers: Chronic kidney disease stage: stage 3 (moderate) Qualified Code(s): N18.9 - Chronic kidney disease, unspecified (5) Coronary artery disease Current Visit: No Status: Chronic Assessment and plan: January 01. Status post stent placement. Continue aspirin, Coreg, and amlodipine. January 03. Hold amlodipine and Coreg today due to hypotension. January 08. Continue aspirin and Coreg. Qualifiers: Coronary Disease-Associated Artery/Lesion type: [place] artery [place] vs. transplanted heart: [place] heart Associated angina: without angina Qualified Code(s): I25.10 - Atherosclerotic heart disease of [place] coronary artery without angina pectoris (6) DVT prophylaxis Current Visit: No Status: Acute Assessment and plan: January 01. Continue Lovenox. (7) Congestive heart failure Current Visit: No Status: Acute Assessment and plan: January 01. Continue aspirin, Coreg, and Cozaar. January 02. Continue present Rx. Check BNP peptide. January 03. Hold Coreg and Cozaar because of hypotension. January 06. BN peptide has risen to 1021. Continue Coreg and restart Cozaar. . BN peptide has decreased to 908. Continue present Rx. Qualifiers: Heart failure type: systolic Heart failure chronicity: acute on chronic Qualified Code(s): I50.23 - Acute on chronic systolic (congestive) heart failure (8) Dementia Current Visit: No Status: Chronic Assessment and plan: January 01. Possible. MMSE has been ordered. January 02. MMSE score 22/30. TSH and B12 level WNL. Qualifiers: Dementia type: unspecified type Dementia behavioral disturbance: without behavioral disturbance Qualified Code(s): F03.90 - Unspecified dementia witho ut behavioral disturbance (9) Anemia Current Visit: No Status: Acute Assessment and plan: January 01. Recent anemia testing showed iron 60, transferrin saturation 18%, transferrin 239, ferritin 44, B12 1321, and folate> 22.3. Monitor CBC. January 02. Check CBC today. January 03. Hemoglobin 7.5 today. Continue to monitor. January 04. Hemoglobin has decreased further to 6.8. Aspirin will be held for 3 days. 2 units of packed red blood cells will be transfused. Recheck labs in a.m. January 05. Hemoglobin 9.2 today. Remain off aspirin through January 07 and restart at lower dose. Monitor labs. January 06. Hemoglobin stable today at 9.2. Restart aspirin January 08 at lower dose. January 08. Restart aspirin at 81 mg every other day. Qualifiers: Anemia type: unspecified type Qualified Code(s): D64.9 - Anemia, unspecified (10) Tobacco abuse Current Visit: No Status: Chronic Assessment and plan: January 02. Start NicoDerm patch. (11) UTI (urinary tract infection) Current Visit: Yes Status: Acute Assessment and plan: January 06. Urine culture shows 2 distinct Escherichia coli organisms. Start oral Macrobid and discontinue IV Zosyn. Qualifiers: Urinary tract infection type: site unspecified Hematuria presence: with hematuria Qualified Code(s): N39.0 - Urinary tract infection, site not specified; R31.9 - Hematuria, unspecified - Subjective Interval history: January 01. She has no new complaints except she is "bored" and wants to go outside. January 02. She has no new complaints. She denies pain or dyspnea. January 03. She has no new complaints. She specifically denies pain or dyspnea. January 04. She has no new complaints. January 05. She complains of nausea and abdominal discomfort but no vomiting. January 06. She has no new complaints. She denies pain or dyspnea. January 08. She has no new complaints. She inquired again about getting a prosthetic leg. - Constitutional Vitals: Temp Pulse Resp BP Pulse Ox 98.3 F 69 16 166/67 95 01/08/19 07:14 01/08/19 07:14 01/08/19 07:14 01/08/19 07:14 01/08/19 07:14 Exam: She is resting comfortably in bed and appears in no acute distress. Left leg incision shows no drainage. Heart is regular without murmurs gallops or ectopics. Lungs are clear anteriorly. I reviewed her medications and lab results. Internal Medicine: Result - Labs CBC & Chem 7: 01/08/19 04:27 01/08/19 04:27 Labs: Short CBC 01/08/19 Range/Units 04:27 WBC 7.9 (4.3-11.1) K/mcL Hgb 9.6 L (11.5-15.4) g/dL Hct 30.1 L (35.3-44.9) % Plt Count 227 (140-400) K/mcL Neutrophils # 5.4 (1.6-8.9) K/mcL BMP 01/08/19 04:27 Sodium 144 Potassium 3.8 Chloride 114 H Carbon Dioxide 23 BUN 15 Creatinine 1.20 Glucose 87 Calcium 8.3 L - ABG Interpretation ABG results: PT/INR, D-dimer PT 12.0 Seconds (9.4-12.1) 12/31/18 06:12 Consult Discharge Plan - Plan Referrals: NONE,PCP [Primary Care Provider] - 1 week
[2019-01-08] MEDS: Gabapentin 300 MG CAPSULE PO SCH (19:57)
[2019-01-08] MEDS: Mirtazapine 15 MG TABLET PO SCH (19:58)
[2019-01-09] MEDS: *HR* Enoxaparin 30 MG/0.3 ML SYRINGE SQ SCH (06:25)
[2019-01-09] MEDS: Nicotine 14 MG PATCH.TD24 TD SCH (09:14)
[2019-01-09] MEDS: Nitrofurantoin (BID) 100 MG CAPSULE PO SCH ×2 (09:15→16:48)
[2019-01-09] MEDS: Multivit/Ca/Min/Fe/FA 1 TAB TABLET PO SCH (09:15)
[2019-01-09] MEDS: Lactobacillus 1 EACH CAP.SPRINK PO SCH ×2 (09:15→20:38)
[2019-01-09] MEDS: *HR* OxyCODONE Immed Rel 5 MG TABLET PO SCH ×4 (09:16→20:39)
--- NOTE | 2019-01-09 11:29 | Internal Med Progress Note ---
Date of Encounter: 01/09/19 Time of Encounter: 11:20 - Assessment and plan (1) Unilateral AKA Current Visit: Yes Status: Acute Assessment and plan: January 01. Continue PT/OT intervention. Follow up with surgeon as directed. January 09. Satisfactory progress in therapy. With the AKA she has a mobility limitation that impairs her ability to do toileting and bathing. The limitation cannot be improved with a cane or walker. A manual wheelchair will significant improve her ability to. Anticipate in daily activities. She will use it on a regular basis and has expressed willingness to use the wheelchair in the home. She has upper extremity function and other physical and mental capabilities needed to safety propel the wheelchair in the home and caregivers available and willing to provide assistance with the wheelchair. (2) Hypertension Current Visit: No Status: Chronic Assessment and plan: January 01. Continue amlodipine, Coreg, and Cozaar January 03. Blood pressure borderline low. Hold antihypertensive medications. January 04. Blood pressure improved. Remain off antihypertensive medication. January 06. Blood pressure has risen. Restart Cozaar. Continue Coreg. Remain off amlodipine. January 09. Blood pressure remains above desirable level. Continue Coreg and Cozaar. Restart amlodipine. Qualifiers: Hypertension type: essential hypertension Qualified Code(s): I10 - Essential (primary) hypertension (3) COPD (chronic obstructive pulmonary disease) Current Visit: No Status: Chronic Assessment and plan: January 01. Continue Proventil nebs as needed. Qualifiers: COPD type: COPD with acute exacerbation Qualified Code(s): J44.1 - Chronic obstructive pulmonary disease with (acute) exacerbation (4) Chronic kidney disease Current Visit: No Status: Chronic Assessment and plan: January 01. Creatinine minimally changed since July 2015. Monitor renal indices. January 03. Creatinine has risen to 1.69. Intake marginal. IV fluids will be started at low rate. Recheck labs in a.m. January 04. BUN and creatinine slightly higher at 32 and 1.87 respectively. Continue IV fluids. Recheck labs in a.m. January 05. BUN and creatinine decreased to 26 and 1.76 respectively with estimated GFR 28. Continue present Rx. January 06. BUN and creatinine have improved to 19 and 1.61 respectively with estimated GFR 30. Oral intake is adequate. Discontinue IV fluids and continue to monitor labs periodically. January 08. BUN and creatinine have decreased to 15 and 1.20 respectively with estimated GFR 43. Continue to monitor periodically. January 09. Recheck labs in a.m. Qualifiers: Chronic kidney disease stage: stage 3 (moderate) Qualified Code(s): N18.9 - Chronic kidney disease, unspecified (5) Coronary artery disease Current Visit: No Status: Chronic Assessment and plan: January 01. Status post stent placement. Continue aspirin, Coreg, and amlodipine. January 03. Hold amlodipine and Coreg today due to hypotension. January 08. Continue aspirin and Coreg. January 09. Restart amlodipine. Continue aspirin and Coreg. Qualifiers: Coronary Disease-Associated Artery/Lesion type: [place] artery [place] vs. transplanted heart: [place] heart Associated angina: without angina Qualified Code(s): I25.10 - Atherosclerotic heart disease of [place] coronary artery without angina pectoris (6) DVT prophylaxis Current Visit: No Status: Acute Assessment and plan: January 01. Continue Lovenox. (7) Congestive heart failure Current Visit: No Status: Acute Assessment and plan: January 01. Continue aspirin, Coreg, and Cozaar. January 02. Continue present Rx. Check BNP peptide. January 03. Hold Coreg and Cozaar because of hypotension. January 06. BN peptide has risen to 1021. Continue Coreg and restart Cozaar. January 08. BN peptide has decreased to 908. Continue present Rx. January 09. Recheck labs in a.m. Qualifiers: Heart failure type: systolic Heart failure chronicity: acute on chronic Qualified Code(s): I50.23 - Acute on chronic systolic (congestive) heart failure (8) Dementia Current Visit: No Status: Chronic Assessment and plan: January 01. Possible. MMSE has been ordered. January 02. MMSE score . TSH and B12 level WNL. Qualifiers: Dementia type: unspecified type Dementia behavioral disturbance: without behavioral disturbance Qualified Code(s): F03.90 - Unspecified dementia without behavioral disturbance (9) Anemia Current Visit: No Status: Acute Assessment and plan: January 01. Recent anemia testing showed iron 60, transferrin saturation 18%, transferrin 239, ferritin 44, B12 1321, and folate> 22.3. Monitor CBC. January 02. Check CBC today. January 03. Hemoglobin 7.5 today. Continue to monitor. January 04. Hemoglobin has decreased further to 6.8. Aspirin will be held for 3 days. 2 units of packed red blood cells will be transfused. Recheck labs in a.m. January 05. Hemoglobin 9.2 today. Remain off aspirin through January 07 and restart at lower dose. Monitor labs. January 06. Hemoglobin stable today at 9.2. Restart aspirin January 08 at lower dose. January 08. Restart aspirin at 81 mg every other day. January 09. Recheck labs in a.m. Qualifiers: Anemia type: unspecified type Qualified Code(s): D64.9 - Anemia, unspecified (10) Tobacco abuse Current Visit: No Status: Chronic Assessment and plan: January 02. Start NicoDerm patch. (11) UTI (urinary tract infection) Current Visit: Yes Status: Acute Assessment and plan: January 06. Urine culture shows 2 distinct Escherichia coli organisms. Start oral Macrobid and discontinue IV Zosyn. Qualifiers: Urinary tract infection type: site unspecified Hematuria presence: with hematuria Qualified Code(s): N39.0 - Urinary tract infection, site not specified; R31.9 - Hematuria, unspecified - Subjective Interval history: January 01. She has no new complaints except she is "bored" and wants to go outside. January 02. She has no new complaints. She denies pain or dyspnea. January 03. She has no new complaints. She specifically denies pain or dyspnea. January 04. She has no new complaints. January 05. She complains of nausea and abdominal discomfort but no vomiting. January 06. She has no new complaints. She denies pain or dyspnea. January 08. She has no new complaints. She inquired again about getting a prosthetic leg. January 09. She has no new complaints. - Constitutional Vitals: Temp Pulse Resp BP Pulse Ox 98.0 F 70 16 170/68 92 01/09/19 07:27 01/09/19 07:27 01/09/19 07:27 01/09/19 07:27 01/09/19 07:27 Exam: She is resting comfortably in bed and appears in no acute distress. Left leg incision is healing well with no drainage. There is no edema of the right leg. Her affect is bright and cheerful. I reviewed her medications and lab results. Internal Medicine: Result - Labs CBC & Chem 7: 01/08/19 04:27 01/08/19 04:27 - ABG Interpretation ABG results: PT/INR, D-dimer PT 12.0 Seconds (9.4-12.1) 12/31/18 06:12 Consult Discharge Plan - Plan Referrals: NONE,PCP [Primary Care Provider] - 1 week
[2019-01-09] MEDS: Gabapentin 300 MG CAPSULE PO SCH (20:38)
[2019-01-09] MEDS: Mirtazapine 15 MG TABLET PO SCH (20:38)
[2019-01-10] MEDS: *HR* Enoxaparin 30 MG/0.3 ML SYRINGE SQ SCH (05:43)
[2019-01-10 05:53] LABS: Basophils % 0.5 %; Eosinophils # 0.6 K/mcL (0.0-0.6); Eosinophils % 7.5 %; Hematocrit 30.9 % (35.3-44.9); Hemoglobin 9.8 g/dL (11.5-15.4); Immature Granulocytes % 0.4 % (0-4); Lymphocytes # 1.5 K/mcL (0.6-4.6); Lymphocytes % 19.5 %; Mean Corpuscular HGB Conc 31.7 g/dL (31.6-35.5); Mean Corpuscular Hemoglobin 31.3 pg (28.0-33.3); Mean Corpuscular Volume 98.7 fL (83.0-100.0); Monocytes # 0.5 K/mcL (0.0-1.3); Monocytes % 6.2 %; Neutrophils # 4.9 K/mcL (1.6-8.9); Platelet Count 229 K/mcL (140-400); Red Blood Count 3.13 M/mcL (3.82-4.97); Red Cell Distribution Width 16.2 % (11.5-14.5); Segmented Neutrophils % 65.9 %; White Blood Count 7.5 K/mcL (4.3-11.1)
[2019-01-10 06:18] LABS: Calcium 8.5 mg/dL (8.6-10.3); Potassium 3.8 mEq/L (3.5-5.1)
[2019-01-10] MEDS: Multivit/Ca/Min/Fe/FA 1 TAB TABLET PO SCH (12:04)
[2019-01-10] MEDS: Lactobacillus 1 EACH CAP.SPRINK PO SCH ×2 (12:04→19:48)
[2019-01-10] MEDS: Nitrofurantoin (BID) 100 MG CAPSULE PO SCH ×2 (12:04→17:31)
[2019-01-10] MEDS: *HR* OxyCODONE Immed Rel 5 MG TABLET PO SCH ×4 (12:05→19:49)
[2019-01-10] MEDS: Nicotine 14 MG PATCH.TD24 TD SCH (12:05)
[2019-01-10] MEDS: Aspirin Enteric Coated 81 MG Tablet PO SCH (17:31)
[2019-01-10] MEDS: Mirtazapine 15 MG TABLET PO SCH (19:48)
[2019-01-10] MEDS: Gabapentin 300 MG CAPSULE PO SCH (19:48)
[2019-01-11] MEDS: *HR* Enoxaparin 30 MG/0.3 ML SYRINGE SQ SCH (06:03)
[2019-01-11] MEDS: Nicotine 14 MG PATCH.TD24 TD SCH (08:48)
[2019-01-11] MEDS: Multivit/Ca/Min/Fe/FA 1 TAB TABLET PO SCH (08:48)
[2019-01-11] MEDS: Nitrofurantoin (BID) 100 MG CAPSULE PO SCH ×2 (08:48→17:34)
[2019-01-11] MEDS: Lactobacillus 1 EACH CAP.SPRINK PO SCH ×2 (08:48→20:22)
[2019-01-11] MEDS: *HR* OxyCODONE Immed Rel 5 MG TABLET PO SCH ×4 (08:52→20:22)
--- NOTE | 2019-01-11 11:15 | Internal Med Progress Note ---
Date of Encounter: 01/11/19 Time of Encounter: 11:08 - Assessment and plan (1) Unilateral AKA Current Visit: Yes Status: Acute Assessment and plan: January 01. Continue PT/OT intervention. Follow up with surgeon as directed. January 09. Satisfactory progress in therapy. With the AKA she has a mobility limitation that impairs her ability to do toileting and bathing. The limitation cannot be improved with a cane or walker. A manual wheelchair will significant improve her ability to. Anticipate in daily activities. She will use it on a regular basis and has expressed willingness to use the wheelchair in the home. She has upper extremity function and other physical and mental capabilities needed to safety propel the wheelchair in the home and caregivers available and willing to provide assistance with the wheelchair. January 11. Anticipate discharge home tomorrow. (2) Hypertension Current Visit: No Status: Chronic Assessment and plan: January 01. Continue amlodipine, Coreg, and Cozaar January 03. Blood pressure borderline low. Hold antihypertensive medications. January 04. Blood pressure improved. Remain off antihypertensive medication. January 06. Blood pressure has risen. Restart Cozaar. Continue Coreg. Remain off amlodipine. January 09. Blood pressure remains above desirable level. Continue Coreg and Cozaar. Restart amlodipine. January 11. Blood pressure fluctuating but overall satisfactory. Qualifiers: Hypertension type: essential hypertension Qualified Code(s): I10 - Essential (primary) hypertension (3) COPD (chronic obstructive pulmonary disease) Current Visit: No Status: Chronic Assessment and plan: January 01. Continue Proventil nebs as needed. Qualifiers: COPD type: COPD with acute exacerbation Qualified Code(s): J44.1 - Chronic obstructive pulmonary disease with (acute) exacerbation (4) Chronic kidney disease Current Visit: No Status: Chronic Assessment and plan: January 01. Creatinine minimally changed since July 2015. Monitor renal indices. January 03. Creatinine has risen to 1.69. Intake marginal. IV fluids will be started at low rate. Recheck labs in a.m. January 04. BUN and creatinine slightly higher at 32 and 1.87 respectively. Continue IV fluids. Recheck labs in a.m. January 05. BUN and creatinine decreased to 26 and 1.76 respectively with estimated GFR 28. Continue present Rx. January 06. BUN and creatinine have improved to 19 and 1.61 respectively with estimated GFR 30. Oral intake is adequate. Discontinue IV fluids and continue to monitor labs periodically. January 08. BUN and creatinine have decreased to 15 and 1.20 respectively with estimated GFR 43. Continue to monitor periodically. January 09. Recheck labs in a.m. January 11. BUN and creatinine stable at 16 and 1.2 to respectively yesterday. Qualifiers: Chronic kidney disease stage: stage 3 (moderate) Qualified Code(s): N18.9 - Chronic kidney disease, unspecified (5) Coronary artery disease Current Visit: No Status: Chronic Assessment and plan: January 01. Status post stent placement. Continue aspirin, Coreg, and amlodipine. January 03. Hold amlodipine and Coreg today due to hypotension. January 08. Continue aspirin and Coreg. January 09. Restart amlodipine. Continue aspirin and Coreg. Qualifiers: Coronary Disease-Associated Artery/Lesion type: [place] artery [place] vs. transplanted heart: [place] heart Associated angina: without angina Qualified Code(s): I25.10 - Atherosclerotic heart disease of [place] coronary artery without angina pectoris (6) DVT prophylaxis Current Visit: No Status: Acute Assessment and plan: January 01. Continue Lovenox. (7) Congestive heart failure Current Visit: No Status: Acute Assessment and plan: January 01. Continue aspirin, Coreg, and Cozaar. January 02. Continue present Rx. Check BNP peptide. January 03. Hold Coreg and Cozaar because of hypotension. January 06. BN peptide has risen to 1021. Continue Coreg and restart Cozaar. January 08. BN peptide has decreased to 908. Continue present Rx. January 09. Recheck labs in a.m. January 11. BN peptide decreased to 553. Continue present Rx. Qualifiers: Heart failure type: systolic Heart failure chronicity: acute on chronic Qualified Code(s): I50.23 - Acute on chronic systolic (congestive) heart failure (8) Dementia Current Visit: No Status: Chronic Assessment and plan: January 01. Possible. MMSE has been ordered. January 02. MMSE score . TSH and B12 level WNL. Qualifiers: Dementia type: unspecified type Dementia behavioral disturbance: without behavioral disturbance Qualified Code(s): F03.90 - Unspecified dementia without behavioral disturbance (9) Anemia Current Visit: No Status: Acute Assessment and plan: January 01. Recent anemia testing showed iron 60, transferrin saturation 18%, transferrin 239, ferritin 44, B12 1321, and folate> 22.3. Monitor CBC. January 02. Check CBC today. January 03. Hemoglobin 7.5 today. Continue to monitor. January 04. Hemoglobin has decreased further to 6.8. Aspirin will be held for 3 days. 2 units of packed red blood cells will be transfused. Recheck labs in a.m. January 05. Hemoglobin 9.2 today. Remain off aspirin through January 07 and restart at lower dose. Monitor labs. January 06. Hemoglobin stable today at 9.2. Restart aspirin January 08 at lower dose. January 08. Restart aspirin at 81 mg every other day. January 09. Recheck labs in a.m. January 11. Hemoglobin slightly improved at 9.8. Continue present Rx. Qualifiers: Anemia type: unspecified type Qualified Code(s): D64.9 - Anemia, unspecified (10) Tobacco abuse Current Visit: No Status: Chronic Assessment and plan: January 02. Start NicoDerm patch. (11) UTI (urinary tract infection) Current Visit: Yes Status: Acute Assessment and plan: January 06. Urine culture shows 2 distinct Escherichia coli organisms. Start oral Macrobid and discontinue IV Zosyn. Qualifiers: Urinary tract infection type: site unspecified Hematuria presence: with hematuria Qualified Code(s): N39.0 - Urinary tract infection, site not specified; R31.9 - Hematuria, unspecified - Subjective Interval history: January 01. She has no new complaints except she is "bored" and wants to go outside. January 02. She has no new complaints. She denies pain or dyspnea. January 03. She has no new complaints. She specifically denies pain or dyspnea. January 04. She has no new complaints. January 05. She complains of nausea and abdominal discomfort but no vomiting. January 06. She has no new complaints. She denies pain or dyspnea. January 08. She has no new complaints. She inquired again about getting a prosthetic leg. January 09. She has no new complaints. January 11. She has no new complaints - Constitutional Vitals: Temp Pulse Resp BP Pulse Ox 97.9 F 70 16 146/78 95 01/11/19 07:00 01/11/19 07:00 01/11/19 07:00 01/11/19 07:00 01/11/19 07:00 Exam: She is resting comfortably in bed and appears in no acute distress. Left leg incision shows no drainage or significant erythema. There is no edema of the right leg. Heart is regular with 2/6 systolic murmur heard at the left sternal border radiating toward the axilla. Lungs are clear anteriorly. I reviewed her medications and lab results. Internal Medicine: Result - Labs CBC & Chem 7: 01/10/19 05:35 01/10/19 05:35 - ABG Interpretation ABG results: PT/INR, D-dimer PT 12.0 Seconds (9.4-12.1) 12/31/18 06:12 Consult Discharge Plan - Plan Referrals: Jose Hinson Jr, MD [Non-Partnered Physician] - 01/23/19 11:00 am
[2019-01-11] MEDS: Mirtazapine 15 MG TABLET PO SCH (20:22)
[2019-01-11] MEDS: Gabapentin 300 MG CAPSULE PO SCH (20:22)
[2019-01-12] MEDS: *HR* Enoxaparin 30 MG/0.3 ML SYRINGE SQ SCH (06:43)
[2019-01-12 07:06] VITALS: BP 143/67
[2019-01-12] MEDS: Nitrofurantoin (BID) 100 MG CAPSULE PO SCH (09:11)
[2019-01-12] MEDS: Lactobacillus 1 EACH CAP.SPRINK PO SCH (09:11)
[2019-01-12] MEDS: Multivit/Ca/Min/Fe/FA 1 TAB TABLET PO SCH (09:12)
[2019-01-12] MEDS: *HR* OxyCODONE Immed Rel 5 MG TABLET PO SCH (09:13)
[2019-01-12] MEDS: Nicotine 14 MG PATCH.TD24 TD SCH (09:13)
--- NOTE | 2019-01-12 09:28 | Discharge Summary ---
Date of Encounter: 01/12/19 Time of Encounter: 09:17 - Discharge Diagnosis (1) Unilateral AKA Priority: Primary Status: Acute (2) Hypertension Priority: Secondary Status: Chronic Qualifiers: Hypertension type: essential hypertension Qualified Code(s): I10 - Essential (primary) hypertension (3) COPD (chronic obstructive pulmonary disease) Priority: Secondary Status: Chronic Qualifiers: COPD type: COPD with acute exacerbation Qualified Code(s): J44.1 - Chronic obstructive pulmonary disease with (acute) exacerbation (4) Chronic kidney disease Priority: Secondary Status: Chronic Qualifiers: Chronic kidney disease stage: stage 3 (moderate) Qualified Code(s): N18.9 - Chronic kidney disease, unspecified (5) Coronary artery disease Priority: Secondary Status: Chronic Qualifiers: Coronary Disease-Associated Artery/Lesion type: [place] artery [place] vs. transplanted heart: [place] heart Associated angina: without angina Qualified Code(s): I25.10 - Atherosclerotic heart disease of [place] coronary artery without angina pectoris (6) DVT prophylaxis Priority: Secondary Status: Acute (7) Congestive heart failure Priority: Secondary Status: Chronic Qualifiers: Heart failure type: systolic Heart failure chronicity: acute on chronic Qualified Code(s): I50.23 - Acute on chronic systolic (congestive) heart failure (8) Dementia Priority: Secondary Status: Chronic Qualifiers: Dementia type: unspecified type Dementia behavioral disturbance: without behavioral disturbance Qualified Code(s): F03.90 - Unspecified dementia without behavioral disturbance (9) Anemia Priority: Secondary Status: Acute Qualifiers: Anemia type: unspecified type Qualified Code(s): D64.9 - Anemia, unspecified (10) Tobacco abuse Priority: Secondary Status: Chronic (11) UTI (urinary tract infection) Priority: Secondary Status: Resolved Qualifiers: Urinary tract infection type: site unspecified Hematuria presence: with hematuria Qualified Code(s): N39.0 - Urinary tract infection, site not specified; R31.9 - Hematuria, unspecified Hospital course: Ms. Hester is a 83 year old female who was transferred to [facility] swing bed after [facility] hospitalization December 19 for occluded left femoropopliteal bypass graft. She had left AKA 12/21/2018. Her postop course was complicated by GI bleed with panendoscopy not revealing bleeding source. Eliquis was discontinued. Aspirin was continued. She was discharged to [facility] swing bed for ongoing therapy needs. Initial orders were written by the discharging physicians at [facility]. I saw her on December 31 and performed the swing bed history and physical. She had physical therapy and occupational therapy evaluation with ongoing intervention. She made satisfactory progress. She will have home health services ordered after discharge. MMSE showed score 22/30. Her PCP can monitor and determine if additional Rx is needed. Urine culture showed 2 distinct Escherichia coli organisms. She was initially given IV Zosyn but was later changed to Macrobid. She remained afebrile after January 02. Antibiotics will not be continued at discharge. On January 12 arrangements were complete for her to be discharged home. She will follow with her PCP within 1 week. She will follow with her surgeon as directed. - Time Spent with Patient Total time spent providing and/or coordinating discharge services: - Discharge Medications Prescriptions: New Aspirin Enteric Coated [Aspirin EC] 81 mg PO Q48H tablet. Continued [place]-3/Dha/Epa/Fish Oil [[place]-3 Fish Oil 1,000 mg Sfgl] 1,000 mg PO DAILY Multivit-Min/FA/Lycopen/Lutein [Centrum Silver Tablet] 1 tab PO DAILY Albuterol Sulfate [Ventolin Hfa] 2 puff IH Q6H PRN PRN Reason: Shortness Of Breath Carvedilol [Coreg] 25 mg PO BIDWM tablet Gabapentin [Neurontin] 300 mg PO HS amLODIPine [Norvasc] 2.5 mg PO DAILY Mirtazapine [Remeron] 30 mg PO HS Linaclotide [Linzess] 290 mcg PO DAILY PRN PRN Reason: IBS with diarrhea Albuterol Neb [Proventil Neb] 2.5 mg IH Q6H PRN PRN Reason: Shortness Of Breath Losartan Potassium 25 mg PO DAILY Morphine Oral CONC [Roxanol] 5 mg PO QID PRN PRN Reason: Pain Oxycodone HCl [Roxybond] 5 mg PO QID Ferrous Sulfate 325 mg PO BIDWM 30 Days #60 tablet Omeprazole [PriLOSEC] 40 mg PO BIDAC capsule. Discontinued Aspirin Enteric Coated [Aspirin EC] 81 mg PO DAILY Home Medications: Multivit-Min/FA/Lycopen/Lutein [Centrum Silver Tablet] 1 tab PO DAILY 06/05/17 [History] [place]-3/Dha/Epa/Fish Oil [[place]-3 Fish Oil 1,000 mg Sfgl] 1,000 mg PO DAILY 06/05/17 [History] Albuterol Sulfate [Ventolin Hfa] 2 puff IH Q6H PRN 03/01/18 [History] Carvedilol [Coreg] 25 mg PO BIDWM tablet 04/21/18 [Rx] Gabapentin [Neurontin] 300 mg PO HS 12/05/18 [History] Linaclotide [Linzess] 290 mcg PO DAILY PRN 12/05/18 [History] Mirtazapine [Remeron] 30 mg PO HS 12/05/18 [History] amLODIPine [Norvasc] 2.5 mg PO DAILY 12/05/18 [History] Albuterol Neb [Proventil Neb] 2.5 mg IH Q6H PRN 12/07/18 [History] Losartan Potassium 25 mg PO DAILY 12/07/18 [History] Morphine Oral CONC [Roxanol] 5 mg PO QID PRN 12/07/18 [History] Oxycodone HCl [Roxybond] 5 mg PO QID 12/19/18 [History] Ferrous Sulfate 325 mg PO BIDWM 30 Days #60 tablet 12/23/18 [Rx] Omeprazole [PriLOSEC] 40 mg PO BIDAC capsule. 12/30/18 [Rx] Aspirin Enteric Coated [Aspirin EC] 81 mg PO Q48H tablet. 01/12/19 [Rx] Allergies/Adverse Reactions: Allergy/AdvReac Type Severity Reaction Status Date / Time latex Allergy Hives Verified 04/12/18 16:44 lisinopril AdvReac Abdominal Verified 04/12/18 16:44 Pain Date of admission: 12/30/18 18:17 Primary care physician: PCP NONE Consults: 12/30/18 17:52 Consult to Occupational Therapy [CONS] Routine Comment: eval, develop, implement POC Reason for Consult: eval, develop, implement POC Does patient have active BEDREST order?: No Is patient medically & hemodynamically stable?: Yes Consult to Physical Therapy [CONS] Routine Comment: eval, develop, implement POC Reason for Consult: eval, develop, implement POC Does patient have active BEDREST order?: No Is patient medically & hemodynamically stable?: Yes Consult to Cylinder Honer [CONS] Routine Reason for SW Consult: D/C planning - Constitutional Vitals: Temp Pulse Resp BP Pulse Ox 98.2 F 70 20 143/67 92 01/12/19 07:04 01/12/19 07:04 01/12/19 07:04 01/12/19 07:04 01/12/19 07:04 - Patient Status Disposition: Home Health Service - Discharge Instructions Follow Up With: Jose Hinson Jr, MD [Non-Partnered Physician] - 01/23/19 11:00 am - Diet and Activity Activity: as per physical therapy Diet: low salt diet
--- NOTE | 2019-01-12 09:36 | Physician Discharge Referral ---
Home Health/Hosp Referral Info Transfer to: Home Health Attending Provider: Roberto Carlos Provider in Charge Post Discharge: PCP Issac) - Diagnosis (1) Unilateral AKA Priority: Primary Status: Acute (2) Hypertension Priority: Secondary Status: Chronic (3) COPD (chronic obstructive pulmonary disease) Priority: Secondary Status: Chronic (4) Chronic kidney disease Priority: Secondary Status: Chronic (5) Coronary artery disease Priority: Secondary Status: Chronic (6) DVT prophylaxis Priority: Secondary Status: Acute (7) Congestive heart failure Priority: Secondary Status: Chronic (8) Dementia Priority: Secondary Status: Chronic (9) Anemia Priority: Secondary Status: Acute (10) Tobacco abuse Priority: Secondary Status: Chronic (11) UTI (urinary tract infection) Priority: Secondary Status: Resolved - Respiratory Orders Oxygen / L per min (2 L/m by nasal cannula as needed to keep sat greater than 90%.) Smoking Cessation: Smoking cessation has been advised. For more information, call the [employer] Tobacco Quit Line at 4-047-OWLH-NOW. - Diet/Nutrition Diet/Nutrition Orders: Cardiac - Services Needed Following services are medically necessary services: Nursing, Home Health Aide, Physical Therapy, Occupational Therapy - Transfer Medications Home Medications: Multivit-Min/FA/Lycopen/Lutein [Centrum Silver Tablet] 1 tab PO DAILY 06/05/17 [History] [place]-3/Dha/Epa/Fish Oil [[place]-3 Fish Oil 1,000 mg Sfgl] 1,000 mg PO DAILY 06/05/17 [History] Albuterol Sulfate [Ventolin Hfa] 2 puff IH Q6H PRN 03/01/18 [History] Carvedilol [Coreg] 25 mg PO BIDWM tablet 04/21/18 [Rx] Gabapentin [Neurontin] 300 mg PO HS 12/05/18 [History] Linaclotide [Linzess] 290 mcg PO DAILY PRN 12/05/18 [History] Mirtazapine [Remeron] 30 mg PO HS 12/05/18 [History] amLODIPine [Norvasc] 2.5 mg PO DAILY 12/05/18 [History] Albuterol Neb [Proventil Neb] 2.5 mg IH Q6H PRN 12/07/18 [History] Losartan Potassium 25 mg PO DAILY 12/07/18 [History] Morphine Oral CONC [Roxanol] 5 mg PO QID PRN 12/07/18 [History] Oxycodone HCl [Roxybond] 5 mg PO QID 12/19/18 [History] Ferrous Sulfate 325 mg PO BIDWM 30 Days #60 tablet 12/23/18 [Rx] Omeprazole [PriLOSEC] 40 mg PO BIDAC capsule. 12/30/18 [Rx] Aspirin Enteric Coated [Aspirin EC] 81 mg PO Q48H tablet. 01/12/19 [Rx] Allergies/Adverse Reactions: Allergy/AdvReac Type Severity Reaction Status Date / Time latex Allergy Hives Verified 04/12/18 16:44 lisinopril AdvReac Abdominal Verified 04/12/18 16:44 Pain Certification: Further, I certify that my clinical findings support that this patient is homebound (i.e. absences from home require considerable and taxing effort and are for medical reasons or yazdanism services or infrequently or short duration when for other reasons) because: Homebound Reason: Leaving home requires considerable and taxing effort due to condition (Impaired mobility secondary to recent left AKA.) Attestation: My signature below is to certify that this patient is under my care and that I, or nurse practitioner, or a physician's assistant clinical nurse manager working with me, has a face-t o-face encounter with this patient.
== END 2019-01-12 12:12 | disposition home health service (06) | DRG 949 ==
LOC: INPPIK 18:17
PROVIDERS: ADMIT Internal Medicine; ATTEND Internal Medicine